=== PATIENT | male | born 1995 | race Caucasian/White ===

== ENCOUNTER 2018-05-08 22:55 | Emergency (ER) | payer SELFPAY ==
--- NOTE | 2018-05-09 00:17 | ER Document Report ---
ED Medical Screen (RME) - General Chief Complaint: Psych Problem Stated Complaint: IVC Time Seen by Provider: 05/09/18 00:15 Notes: Patient is a 22-year-old male brought to the emergency department by law enforcement with IVC paperwork. Paperwork states this afternoon the patient took arrival and placed it in his mouth and stated that he was going to pull the trigger. He has a history of displaying aggressive and hostile towards his and other family members. Upon questioning patient is currently denying HI or SI. Denying auditory or visual hallucinations. Past medical history: None Medications: None Allergies: None GENERAL: Alert, interacts well. No acute distress. HEAD: Normocephalic, atraumatic. PSYCH: Normal affect, normal mood. SKIN: Warm, dry, normal turgor. No rashes or lesions noted. I have greeted and performed a rapid initial assessment of this patient. A comprehensive ED assessment and evaluation of the patient, analysis of test results and completion of the medical decision making process will be conducted by additional ED providers. TRAVEL OUTSIDE OF THE [place] IN LAST 30 DAYS: No Physical Exam - Vital signs Vitals: Temp Pulse Resp BP Pulse Ox 98.4 F 91 16 131/73 H 100 05/08/18 23:43 05/08/18 23:43 05/08/18 23:43 05/08/18 23:43 05/08/18 23:43 Course - Vital Signs Vital signs: Temp Pulse Resp BP Pulse Ox 98.4 F 91 16 131/73 H 100 05/08/18 23:43 05/08/18 23:43 05/08/18 23:43 05/08/18 23:43 05/08/18 23:43
[2018-05-09 01:30] LABS: ABSOLUTE BASOPHILS # (AUTO) 0.1 10^3/uL (0.0-0.2); ABSOLUTE EOSINOPHILS # (AUTO) 0.1 10^3/uL (0.0-0.6); ABSOLUTE LYMPHOCYTES (AUTO) 2.7 10^3/uL (0.5-4.7); ABSOLUTE MONOCYTES (AUTO) 0.9 10^3/uL (0.1-1.4); ABSOLUTE NEUT (AUTO) 5.9 10^3/uL (1.7-8.2); BASOPHILS % (AUTO) 0.6 % (0-2); EOSINOPHILS % (AUTO) 1.1 % (0-6); HEMATOCRIT 46.6 % (37.9-51.0); HEMOGLOBIN 16.2 g/dL (13.5-17.0); LYMPHOCYTES % (AUTO) 27.8 % (13-45); MEAN CORPUSCULAR HEMOGLOBIN 28.7 pg (27.0-33.4); MEAN CORPUSCULAR HGB CONC 34.7 g/dL (32.0-36.0); MEAN CORPUSCULAR VOLUME 83 fl (80-97); MONOCYTES % (AUTO) 8.9 % (3-13); PLATELET COUNT 292 10^3/uL (150-450); RED BLOOD COUNT 5.63 10^6/uL (4.35-5.55); RED CELL DISTRIBUTION WIDTH 13.6 % (11.5-14.0); SEGMENTED NEUTROPHILS % (AUTO) 61.6 % (42-78); TOTAL CELLS COUNTED % (AUTO) 100 %; WHITE BLOOD COUNT 9.6 10^3/uL (4.0-10.5)
[2018-05-09 01:46] LABS: ALANINE AMINOTRANSFERASE 28 U/L (21-72); ALBUMIN 5.3 g/dL (3.5-5.0); ALKALINE PHOSPHATASE 51 U/L (38-126); ANION GAP 13 (5-19); ASPARTATE AMINO TRANSFERASE 22 U/L (17-59); BILIRUBIN,DIRECT 0.3 mg/dL (0.0-0.4); BILIRUBIN,TOTAL 2.1 mg/dL (0.2-1.3); BLOOD UREA NITROGEN 14 mg/dL (7-20); CALCIUM 10.2 mg/dL (8.4-10.2); CARBON DIOXIDE 27 mmol/L (22-30); CHLORIDE 103 mmol/L (98-107); GLUCOSE 96 mg/dL (75-110); POTASSIUM 4.3 mmol/L (3.6-5.0); SODIUM 142.6 mmol/L (137-145); TOTAL PROTEIN 8.1 g/dL (6.3-8.2)
[2018-05-09 01:48] LABS: ACETAMINOPHEN < 10 ug/mL (10-30); ALCOHOL < 10 mg/dL (NONE DETECTED); SALICYLATE < 1.0 mg/dL (2.0-20.0)
--- NOTE | 2018-05-09 06:07 | ER Document Report ---
ED General - General Chief Complaint: Psych Problem Stated Complaint: IVC Time Seen by Provider: 05/09/18 00:15 Notes: Patient is a 22-year-old male was brought in on vomiting treatment paperwork. Patient's says he was brought here because he had made a gesture towards his . Patient says that his mother committed suicide February. He says him and his are getting argument his kept telling him that he is just like his mother and that is he would eventually probably hurt himself. Patient says to prove a point he took a gun of the gun cabinet that was not loaded and put it in his mouth and pulled the trigger. He said because the gun was not loaded it clicked. He says he knew the gun was not loaded and did this to prove a point to her to show her that he would not actually kill himself. Patient said this was his reasoning is a gun was not loaded. Patient says he is not suicidal. Patient says that he is not currently significantly depressed. He has no further concerns at this time. TRAVEL OUTSIDE OF THE [place] IN LAST 30 DAYS: No - Related Data Allergies/Adverse Reactions: No Known Allergies Allergy (Unverified 05/09/18 02:32) Past Medical History - Social History Smoking Status: Never Smoker Frequency of alcohol use: None Drug Abuse: None Family History: Reviewed & Not Pertinent Patient has suicidal ideation: No Patient has homicidal ideation: No Renal/ Medical History: Denies: Hx Peritoneal Dialysis Past Surgical History: Reports: Hx Abdominal Surgery Review of Systems - Review of Systems Notes: My Normal Review Basic REVIEW OF SYSTEMS: CONSTITUTIONAL : Denies fever, chills, or sweats. Denies recent illness. RESPIRATORY: Denies cough, cold, or chest congestion. Denies shortness of breath, difficulty breathing, or wheezing. GASTROINTESTINAL: Denies abdominal pain. Denies nausea, vomiting, or diarrhea. GENITOURINARY: Denies difficulty urinating, painful urination, burning, frequency, or blood in urine. MUSCULOSKELETAL: Denies neck or back pain or joint pain or swelling. SKIN: Denies rash or skin lesions. NEUROLOGICAL: Denies altered mental status or loss of consciousness. Denies headache. Denies weakness or paralysis or loss of use of either side. Denies problems with gait or speech. Denies sensory or motor loss. PSYCHIATRIC: Previous history of depression. Patient denies any suicidal thoughts at this time. ALL OTHER SYSTEMS REVIEWED AND NEGATIVE. Physical Exam - Vital signs Vitals: Temp Pulse Resp BP Pulse Ox 98.4 F 91 16 131/73 H 100 05/08/18 23:43 05/08/18 23:43 05/08/18 23:43 05/08/18 23:43 05/08/18 23:43 - Notes Notes: General Appearance: Well nourished, alert, cooperative, no acute distress, no obvious discomfort. Well-appearing. Vitals: reviewed, See vital signs table. Eyes: PERRL, EOMI, Conjuctiva clear Mouth: No decreasd moisture Lungs: No wheezing, No rales, No rhonci, No accessory muscle use, good air exchange bilaterally. Heart: Normal rate, Regular rythm, No murmur, no rub Abdomen: Normal BS, soft, No rigidity, No abdominal tenderness, No guarding, no rebound, Extremities: good pulses in all extremities,no edema. Skin: warm, dry, appropriate color, no rash Neuro: speech clear, oriented x 3, normal affect, responds appropriately to questions. Gastric: Patient is calm and cooperative and answers questions appropriately. Patient makes good eye contact. History is normal organized thought process. Course - Re-evaluation Re-evalutation: 05/09/18 06:09 Patient is medically stable for psychiatric evaluation. Dictation of this chart was performed using voice recognition software; therefore, there may be some unintended grammatical errors. - Vital Signs Vital signs: Temp Pulse Resp BP Pulse Ox 98.4 F 91 16 131/73 H 100 05/08/18 23:43 05/08/18 23:43 05/08/18 23:43 05/08/18 23:43 05/08/18 23:43 - Laboratory Result Diagrams: 05/09/18 01:00 05/09/18 01:00 Laboratory results interpreted by me: 05/09/18 05/09/18 01:00 01:00 RBC 5.63 H Total Bilirubin 2.1 H Albumin 5.3 H Salicylates < 1.0 L Acetaminophen < 10 L Discharge - Discharge Clinical Impression: Agitation Condition: Stable
--- NOTE | 2018-05-09 08:58 | EKG REPORT ---
SEVERITY:- NORMAL ECG - SINUS RHYTHM : Confirmed by: Princess Huggins MD 09-May-2018 08:57:57
--- NOTE | 2018-05-09 09:17 | ER Document Report ---
Doctor's Note Notes: 05/09/18 09:16 22-year-old male who presents today with a suicidal-like gesture. Patient was supposedly having an argument with his and he took an unloaded gun and put it into his mouth and pulled the trigger. He states he did this just as a gesture and he denies any suicidal ideations. Patient did have a mother who committed suicide this past February. He states he was just angry with his after the argument and was trying to "prove a point". Patient has no psychiatric history and takes no medications. He is currently calm and cooperative. Vital signs are stable. Labs as recorded. 05/09/18 10:09 The psychology team is attempting to find placement for this patient.
[2018-05-09 09:40] LABS: APPEARANCE,URINE CLEAR; BILIRUBIN,URINE NEGATIVE (NEGATIVE); COLOR,URINE YELLOW; GLUCOSE, URINE NEGATIVE (NEGATIVE); KETONES,URINE 20 mg/dL (NEGATIVE); LEUKOCYTE ESTERASE,URINE NEGATIVE (NEGATIVE); NITRITE,URINE NEGATIVE (NEGATIVE); PROTEIN,URINE NEGATIVE (NEGATIVE); URINE SPECIFIC GRAVITY 1.013; UROBILINOGEN,URINE NEGATIVE mg/dL (<2.0)
[2018-05-09 10:06] LABS: URINE AMPHETAMINES SCREEN NEGATIVE; URINE BARBITURATES SCREEN NEGATIVE; URINE BENZODIAZEPINES SCREEN NEGATIVE; URINE COCAINE SCREEN NEGATIVE; URINE MARIJUANA (THC) SCREEN NEGATIVE; URINE METHADONE SCREEN NEGATIVE; URINE PHENCYCLIDINE SCREEN NEGATIVE
--- NOTE | 2018-05-09 12:08 | PSYCHOLOGICAL NOTE ---
Psych Note - Psych Note Date seen by psych provider: 05/09/18 Time seen by psych provider: 08:35 Psych Note: Reason for Consult: IVC Patient is a 22-year-old male brought to the emergency department by law enforcement with IVC paperwork. Patient disclosed that he was brought to [facility] ED [facility] department because "me and my got into an argument and I made a point to her that scared her." He disclosed that he does not have a mental health diagnosis and only did this to get the "upper hand in the argument." When asked what he did he states that he "took his rifle... without a magazine in it" put it up to his mouth and pulled the trigger. He reports that gun was not loaded and he knew that so was fine with pulling the trigger. He denies that he would kill himself. Patient was asked why he felt putting a gun to his head and pulling the trigger would prove a point he reports that his was saying that he was going to end up like his mother. He reports his mother just killed herself March 11, 2018. 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 He does not disclose why he got out. Patient is alert and orientated to person, place, time and circumstance. Patient is slightly irritable however still openly engages with clinician. Patient denies suicidal ideation however confirms that he picked up a gun put into his mouth and pulled the trigger to "prove a point." Patient denies homicidal ideation. Delusions are absent behaviors congruent with an intact reality based presentation i.e. organized and linear thought process. Clinician notes patient is guarded. Eye contact is poor. Conversational speech is within normal rate, tone and prosody. Intellectual abilities appear to be within the average range. Attention and concentration are fair. Insight, judgment, impulse control are poor. 311 (F32.9) Unspecified depressive disorder Impression\\plan: Patient is recommended for continued IVC. Patient reports that he only held a gun up to his mouth and pulled the trigger to "prove a point" to his that he was not suicidal. He continued to report that he did this to get the "upper hand" and argumentative. 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 At this time patient is very guarded and his insight and judgment is poor. Patient has been accepted to [facility]; transportation has been requested. Dr. Bernardo was consulted and the care management this patient; attending physicians in agreement with recommendations and disposition.
[2018-05-09 14:51] VITALS: BP 124/66
== END 2018-05-09 15:00 ==
LOC: ER 22:55
DX: R45.1 Restlessness and agitation (principal); R11.10 Vomiting, unspecified; F32.9 Major depressive disorder, single episode, unspecified; R45.851 Suicidal ideations
CPT/HCPCS: 36415; 80053; 80307; 81001; 85025; 93005; 93010; 99285